=== PATIENT | male | born 1995 ===

== ENCOUNTER 2020-02-04 17:45 | Emergency (ER) | payer BC ==
--- NOTE | 2020-02-04 17:56 | EDM.PDOC ---
ED HPI GENERAL MEDICAL PROBLEM - General Chief Complaint: Lower Extremity Injury/Pain Stated Complaint: RT FOOT PAIN Time Seen by Provider: 02/04/20 17:46 Source of Information: Reports: Patient History Limitations: Reports: No Limitations - History of Present Illness INITIAL COMMENTS - FREE TEXT/NARRATIVE: HISTORY AND PHYSICAL: History of present illness: Patient is a 24-year-old male who presents to the emergency room with complaints of right anterior foot pain which started last evening. He states the pain is below his great toe and also on the lateral aspect along the solar surface. He does not recall any injury or trauma. Patient denies any fever, chills, headache, change in vision, syncope or near syncope. Denies any chest pain, back pain, shortness of breath or cough. Denies any GI or symptoms. Patient has been eating and drinking appropriately. Review of systems: As per history of present illness and below otherwise all systems reviewed and negative. Past medical history: As per history of present illness and as reviewed below otherwise noncontributory. Surgical history: As per history of present illness and as reviewed below otherwise noncontributory. Social history: See social history for further information Family history: As per history of present illness and as reviewed below otherwise noncontributory. Physical exam: General: Well-developed and well-nourished 24-year-old male. Alert and oriented. Nontoxic-appearing and in no acute distress. HEENT: Atraumatic, normocephalic, pupils equal and reactive bilaterally, negative for conjunctival pallor or scleral icterus, mucous membranes moist, trachea midline. No drooling or trismus noted. No meningeal signs. No hot potato voice noted. Lungs/Heart: Clear to auscultation, breath sounds equal bilaterally. S1S2, regular rate and rhythm. Skin: Trace swelling noted at the base right great toe. Otherwise skin is intact , warm, dry. No lesions or rashes noted. Extremities: Atraumatic, moves all extremities per self without difficulty or deficits, negative for cords or calf pain. No tenderness to great toe. Tender with palpation of the right lateral foot, increased with wt bearing and flexion/ extension. No heel tenderness. Neurovascular unremarkable. Neuro: Awake, alert, oriented. Cranial nerves II through XII unremarkable. Cerebellum unremarkable. Motor and sensory unremarkable throughout. Exam nonfocal. Notes: X-ray shows no acute findings. Will give patient crutches to be nonweightbearing over the next few days. Discussed following up with an orthopedic provider or manager dairy. Supportive care measures were reviewed and discussed. Voices understanding and is agreeable to plan of care. Denies any further questions or concerns at this time. Diagnostics: X-ray Therapeutics: Crutches Prescription: Diclofenac Impression: Foot Sprain, right Plan: 1. Rest, ice, elevate the affected extremity. Please wear supportive shoes. Use crutches as discussed. 2. Tylenol as needed for pain management. Diclofenac as needed and as directed. Do not take with any additional NSAIDS such as Ibuprofen or Aleve. 3. Follow up with the Orthopedic provider as we discussed. Return to the ED as needed and as discussed. Definitive disposition and diagnosis as appropriate pending reevaluation and review of above. Onset: Today Location: Reports: Lower Extremity, Right - Related Data Allergies Allergy/AdvReac Type Severity Reaction Status Date / Time No Known Allergies Allergy Verified 02/04/20 18:02 Home Meds: Home Meds . [No Known Home Meds] 02/04/20 [History] Review of Systems - Review of Systems Review Of Systems: Comprehensive ROS is negative, except as noted in HPI. ED EXAM, GENERAL - Physical Exam Exam: See Below (See dictation) Course - Vital Signs Last Recorded V/S: Last Vital Signs Temp 96.5 F L 02/04/20 17:58 Pulse 77 02/04/20 17:58 Resp 16 02/04/20 17:58 BP 144/81 H 02/04/20 17:58 Pulse Ox 96 02/04/20 17:58 - Orders/Labs/Meds Orders: Active Orders 24 hr Category Date Time Status Foot 2V Rt [CR] Stat Exams 02/04/20 17:56 Ordered Departure - Departure Time of Disposition: 18:19 Disposition: Home, Self-Care 01 Clinical Impression: Right foot sprain Qualifiers: Encounter type: initial encounter Qualified Code(s): S93.601A - Unspecified sprain of right foot, initial encounter - Discharge Information Forms: ED Department Discharge Additional Instructions: The following information is given to patients seen in the emergency department who are being discharged to home. This information is to outline your options for follow-up care. We provide all patients seen in our emergency department with a follow-up referral. The need for follow-up, as well as the timing and circumstances, are variable depending upon the specifics of your emergency department visit. If you don't have a primary care physician on staff, we will provide you with a referral. We always advise you to contact your personal physician following an emergency department visit to inform them of the circumstance of the visit and for follow-up with them and/or the need for any referrals to a consulting specialist. The emergency department will also refer you to a specialist when appropriate. This referral assures that you have the opportunity for follow-up care with a specialist. All of these measure are taken in an effort to provide you with optimal care, which includes your follow-up. Under all circumstances we always encourage you to contact your private physician who remains a resource for coordinating your care. When calling for follow-up care, please make the office aware that this follow-up is from your recent emergency room visit. If for any reason you are refused follow-up, please contact the [facility] Emergency Department at and asked to speak to the emergency department charge nurse. [facility] [address] [place] [address] [place] [address] 1. Rest, ice, elevate the affected extremity. Please wear supportive shoes. Use crutches as discussed. 2. Tylenol as needed for pain management. Diclofenac as needed and as directed. Do not take with any additional NSAIDS such as Ibuprofen or Aleve. 3. Follow up with the Orthopedic provider as we discussed. Return to the ED as needed and as discussed. Sepsis Event Note - Focused Exam Vital Signs: Vital Signs Temp Pulse Resp BP Pulse Ox 02/04/20 17:58 96.5 F L 77 16 144/81 H 96 Date Exam was Performed: 02/04/20 Time Exam was Performed: 18:20 - My Orders Last 24 Hours: My Active Orders 02/04/20 17:56 Foot 2V Rt [CR] Stat - Assessment/Plan Last 24 Hours: My Active Orders 02/04/20 17:56 Foot 2V Rt [CR] Stat
--- NOTE | 2020-02-04 18:24 | CR ---
Right foot: 2 views of the right foot were obtained. Comparison: No prior imaging. Small bony density is seen off the dorsal ankle at the talonavicular joint which is felt to be a normal variant. Joint spaces are preserved. No fracture, dislocation or other bony abnormality is appreciated. Impression: 1. Nothing acute is seen on 2 view right foot study. Diagnostic code #2 This report was dictated in MDT
== END 2020-02-04 19:00 | disposition home or self-care (01) ==
LOC: MW.ED 17:45
DX: S93.601A Unspecified sprain of right foot, initial encounter (principal); X58.XXXA Exposure to other specified factors, initial encounter
CPT/HCPCS: 73620-26-RT; 73620-RT; 99282; 99283